=== PATIENT | male | born 1970 | race Caucasian/White ===

== ENCOUNTER 2017-12-08 11:21 | Emergency (ER) | payer OTHER ==
[2017-12-08 11:35] VITALS: BP 154/120
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
[2017-12-08] MEDS ORDERED: FLUORESCEIN SOD/BENOXINATE HCL 20 DROPS/ML OPHT.BTL OP ONE (12:49)
[2017-12-08] MEDS ORDERED: SULFACETAMIDE DROPS 10% PREPACK OPHT.BTL TAKEHOME ONE (13:44)
== END 2017-12-08 14:02 | disposition home or self-care (01) ==
LOC: EDUNIT#
DX: T54.3X1A Toxic effect of corrosive alkalis and alkali-like substances, accidental (unintentional), initial encounter (principal); T20.46XA Corrosion of unspecified degree of forehead and cheek, initial encounter; H10.211 Acute toxic conjunctivitis, right eye; I10 Essential (primary) hypertension; T32.0 Corrosions involving less than 10% of body surface; X58.XXXA Exposure to other specified factors, initial encounter; Y99.0 Civilian activity done for income or pay; Y93.89 Activity, other specified